=== PATIENT | female | born 1990 | race Caucasian/White ===

== ENCOUNTER 2018-11-03 07:37 | Emergency (ER) | payer OTHER ==
[2018-11-03 07:46] VITALS: BP 118/74
--- NOTE | 2018-11-03 08:25 | UC ---
Complaint Female HPI - HPI Summary HPI Summary: 28-year-old woman comes in with a chief complaint of dysuria. This started about 5-6 days ago. She also feels like she needs to urinate more frequently. Denies any flank pain or abdominal pain. No fevers or chills. Denies any abnormal vaginal discharge or any concern of an STI. At her [employer] [facility] service. He started her on nitrofurantoin 4 days ago. No urine sample or culture was done at that time. Symptoms are not improving. Patient is traveling tomorrow to [place]. - History Of Current Complaint Chief Complaint: UCGU Stated Complaint: URINARY COMPLAINT Time Seen by Provider: 11/03/18 08:14 Hx Last Menstrual Period: 10/25/18 Pain Intensity: 3 - Allergies/Home Medications Allergies/Adverse Reactions: Allergies Allergy/AdvReac Type Severity Reaction Status Date / Time coconut Allergy Hives Verified 11/03/18 07:45 nickel Allergy Hives Verified 11/03/18 07:45 Home Medications: Home Medications Copper (Iud) [Paragard IUD] 1 unit INTRAUTERI ONCE 11/03/18 [History Confirmed 11/03/18] Ibuprofen 800 mg PO ONCE PRN 11/03/18 [History Confirmed 11/03/18] Nitrofurantoin Macrocrystal [Nitrofurantoin] 1 tab PO BID 11/03/18 [History Confirmed 11/03/18] PMH/Surg Hx/FS Hx/Imm Hx Previously Healthy: Yes - Surgical History Surgical History: None - Family History Known Family History: Positive: Non-Contributory - Social History Alcohol Use: None Substance Use Type: None Smoking Status (MU): Never Smoked Tobacco Review of Systems All Other Systems Reviewed And Are Negative: Yes Constitutional: Positive: Negative Skin: Positive: Negative Eyes: Positive: Negative ENT: Positive: Negative Respiratory: Positive: Negative Cardiovascular: Positive: Negative Gastrointestinal: Positive: Negative Genitourinary: Positive: Dysuria, Frequency, Urgency. Negative: Vaginal/Penile Discharge Motor: Positive: Negative Neurovascular: Positive: Negative Musculoskeletal: Positive: Negative Neurological: Positive: Negative Psychological: Positive: Negative Is Patient Immunocompromised?: No Physical Exam Triage Information Reviewed: Yes Appearance: Well-Appearing, No Pain Distress, Well-Nourished Vital Signs: Initial Vital Signs Temp 98.1 F 11/03/18 07:41 Pulse 60 11/03/18 07:41 Resp 18 11/03/18 07:41 BP 118/74 11/03/18 07:41 Pulse Ox 98 11/03/18 07:41 Vital Signs Reviewed: Yes Eye Exam: Normal Eyes: Positive: Conjunctiva Clear Neck: Positive: Supple Respiratory: Positive: No respiratory distress Abdomen Description: Positive: Nontender, Soft. Negative: CVA Tenderness (R), CVA Tenderness (L) Musculoskeletal Exam: Normal Musculoskeletal: Positive: Strength Intact, ROM Intact Neurological: Positive: Alert Psychological: Positive: Age Appropriate Behavior Skin Exam: Normal Complaint Female Dx - Course Course Of Treatment: Patient denies any abnormal vaginal discharge or concern of STI therefore no pelvic was done today. There is no urine culture available. The plan is to start her on Keflex 500 mg by mouth 3 times a day. Urine today was sent for culture.. Discussed that if her condition got worse she needs to get reevaluated. - Differential Dx/Diagnosis Provider Diagnosis: Dysuria Discharge - Sign-Out/Discharge Documenting (check all that apply): Patient Departure All imaging exams completed and their final reports reviewed: No Studies - Discharge Plan Condition: Stable Disposition: HOME Prescriptions: Cephalexin CAP* [Keflex CAP*] 500 mg PO TID #30 cap Patient Education Materials: Dysuria (ED) Referrals: [facility] [Outside] [facility] [Provider Group] Additional Instructions: FOLLOW UP WITH YOUR DOCTOR IF NOT COMPLETELY IMPROVED. GET RECHECKED SOONER IF YOUR CONDITION WORSENS; FEVER, PAIN, YOU FEEL ILL OR ANY QUESTIONS OR CONCERNS. - Billing Disposition and Condition Condition: STABLE Disposition: Home
== END 2018-11-03 08:31 | disposition home or self-care (01) ==
LOC: UCEAST 07:37
DX: R30.0 Dysuria (principal)
CPT/HCPCS: 81002; 87086; 99212; G0463

== ENCOUNTER 2018-12-03 18:28 | Emergency (ER) | payer OTHER ==
[2018-12-03] MEDS: Famotidine IV* 10 MG/ML 2 ML (20 mg) IV SLOW PU ONE (18:43)
[2018-12-03] MEDS: methylPREDNISolone 125 MG* 2 ML VIAL IV ONE (18:44)
[2018-12-03] MEDS: NS 0.9% 1000 ML** 1,000 ML IV ONE (18:47)
--- NOTE | 2018-12-03 19:06 | UC ---
Allergic Reaction HPI - HPI Summary HPI Summary: 28-year-old female presents with sudden onset of urticaria last evening. States she took diphenhydramine 50 mg and her symptoms improved. This morning when she woke up she noticed some swelling and achiness of her knees and hand joints. Was seen by [facility] who recommended testing for Lyme disease that she reports she had multiple tick bites back in August. States this evening she was sitting on her couch at home and again had a sudden onset of full body urticaria as well as some swelling and tingling to her lower lip. Patient took Benadryl 50 mg prior to coming to the urgent care. States rash is pruritic. States when she was in her adolescence she had some issues with chronic urticaria. States coconut tended to be the trigger then but has not consumed any coconut that she is aware of recently. Denies fever, chills, swelling of the tongue or throat, dysphagia, difficulty breathing, changes in medications, diarrhea, soaps, detergents, cosmetics, recent insect bite, or known exposure to environmental irritants. - History of Current Complaint Chief Complaint: UCAllergicReaction Stated Complaint: RASH Time Seen by Provider: 12/03/18 18:29 Hx Obtained From: Patient Hx Last Menstrual Period: TODAY Pain Intensity: 0 - Allergies/Home Medications Allergies/Adverse Reactions: Allergies Allergy/AdvReac Type Severity Reaction Status Date / Time coconut Allergy Hives Verified 12/03/18 18:41 nickel Allergy Hives Verified 12/03/18 18:41 PMH/Surg Hx/FS Hx/Imm Hx Previously Healthy: Yes - Surgical History Surgical History: None - Family History Known Family History: Positive: Non-Contributory - Social History Occupation: Student Lives: Dormitory/Roommates Alcohol Use: None Substance Use Type: None Smoking Status (MU): Never Smoked Tobacco Review of Systems All Other Systems Reviewed And Are Negative: Yes Constitutional: Negative: Fever, Chills Skin: Positive: Rash ENT: Positive: Other - Swelling of the lower lip. Negative: Sore Throat Respiratory: Negative: Shortness Of Breath Cardiovascular: Negative: Chest Pain Gastrointestinal: Positive: Negative Genitourinary: Positive: Negative Musculoskeletal: Positive: Negative Neurological: Positive: Negative Is Patient Immunocompromised?: No Physical Exam - Summary Physical Exam Summary: GENERAL APPEARANCE: Well developed, well nourished, alert and cooperative, and appears to be in no acute distress. EYES: Conjunctiva clear. No drainage. EARS: External auditory canals and tympanic membranes clear, hearing grossly intact. NOSE: No nasal discharge. THROAT: Mild swelling of the lower lip. No swelling of the tongue. Pharynx normal. No tonsilar inflammation, swelling, exudate, or lesions. Uvula midline. Airway patent. NECK: Neck supple, non-tender without lymphadenopathy. CARDIAC: Normal S1 and S2. No S3, S4 or murmurs. Rhythm is regular. There is no peripheral edema, cyanosis or pallor. Extremities are warm and well perfused. Capillary refill is less than 2 seconds. Peripheral pulses intact. LUNGS: Clear to auscultation without rales, rhonchi, wheezing or diminished breath sounds. ABDOMEN: Positive bowel sounds. Soft, nondistended, nontender. No guarding or rebound. No masses or hepatosplenomegally. MUSKULOSKELETAL: ROM intact to all extremities. No joint erythema or tenderness. Normal muscular development. Normal gait. SKIN: Full body uriticarial rash including face, neck, anterior and posterior trunk, bilateral arms and legs. Triage Information Reviewed: Yes Vital Signs: Initial Vital Signs Temp 98.7 F 12/03/18 18:32 Pulse 92 12/03/18 18:32 Resp 18 12/03/18 18:32 BP 152/93 12/03/18 18:32 Pulse Ox 97 12/03/18 18:32 Vital Signs Reviewed: Yes Re-Evaluation - Re-Evaluation First Eval Re-Evaluation Time: 18:55 Change: Improved Comment: Patient reports symptoms improving after receiving methylprednisolone and famotidine. Hive are subsiding. Continues to feel some tingling in lower lip and states feels a little swollen but improving as well. No SOB or difficulty breathing. Clear bilateral breath sounds. Second Eval Re-Evaluation Time: 19:30 Change: Improved Comment: Patient states all symptoms have resolved at this time, feeling much better. No difficutly breathing. Bilateral breath sounds clear. Allergic Reaction Course/Dx - Course Course Of Treatment: 28-year-old female presents with sudden onset of urticaria last evening. States she took diphenhydramine 50 mg and her symptoms improved. This morning when she woke up she noticed some swelling and achiness of her knees and hand joints. Was seen by [facility] who recommended testing for Lyme disease that she reports she had multiple tick bites back in August. States this evening she was sitting on her couch at home and again had a sudden onset of full body urticaria as well as some swelling and tingling to her lower lip. Patient took Benadryl 50 mg prior to coming to the urgent care. States rash is pruritic. States when she was in her adolescence she had some issues with chronic urticaria. States coconut tended to be the trigger then but has not consumed any coconut that she is aware of recently. Denies fever, chills, swelling of the tongue or throat, dysphagia, difficulty breathing, changes in medications, diarrhea, soaps, detergents, cosmetics, recent insect bite, or known exposure to environmental irritants. Afebrile. Vital signs stable. Patient had a full body urticarial rash with mild swelling of the lower lip, no swelling of the tongue or throat, she had an intact airway, clear bilateral breath sounds, and otherwise unremarkable exam. She received IV fluids, methylprednisolone 125 mg IV, and famotidine 20 mg IV with a complete resolution of her symptoms. I will have the patient continue a prednisone taper over the next 6 days starting tomorrow. She is also to take famotidine 20 mg twice a day 7 days and loratadine 10 mg twice a day for 7 days. She is to follow-up at [facility] in 2-3 days for recheck of her symptoms. Anticipatory guidance and warning symptoms wearing immediate evaluation in the emergency room were reviewed with the patient. Verbalizes understanding and agrees with plan of care. - Differential Dx/Diagnosis Differential Diagnosis/HQI/PQRI: Anaphylaxis, Angioedema, Local Allergic Reaction, Urticaria Provider Diagnosis: Urticaria Discharge ED - Sign-Out/Discharge Documenting (check all that apply): Patient Departure All imaging exams completed and their final reports reviewed: No Studies - Discharge Plan Condition: Stable Disposition: HOME Prescriptions: Famotidine [Acid Controller] 20 mg PO BID 7 Days #14 tablet predniSONE TAB* [Deltasone 10 MG TAB*] 10 mg PO DAILY #15 tab Patient Education Materials: Urticaria (ED) Referrals: No Primary Care Phys,[facility] [Primary Care Provider] - Additional Instructions: You were given a steroid called methylprednisolone 125 mg and a histamine moni called famotidine 20 mg in the clinic improvement in your symptoms. Starting tomorrow start taking a prednisone taper. Take 50 mg (5 tablets) for 1 day, then 40 mg (4 tablets) for 1 day, then 30 mg (3 tablets) for 1 day, then 20 mg (2 tablets) for 1 day, 10 mg (1 tablet) for 1 day, then stop. Take famotidine (Pepcid) 20 mg 1 tablet twice daily 7 days. Take loratadine (Claritin) 10 mg twice daily x 7 days. Follow-up with [facility] in 2-3 days for recheck of her symptoms. Seek immediate medical attention in the emergency room if you have a reoccurrence of your hives especially with swelling of the lips, tongue, throat , if you have any difficulty breathing, or any worsening of symptoms. - Billing Disposition and Condition Condition: STABLE Disposition: Home
[2018-12-03 19:23] VITALS: BP 109/62
== END 2018-12-03 19:54 | disposition home or self-care (01) ==
LOC: UCEAST 18:28
DX: L50.9 Urticaria, unspecified (principal)
CPT/HCPCS: 99212; G0463; J2930